=== PATIENT | male | born 1955 | race Caucasian/White ===

== ENCOUNTER 2018-04-19 12:39 | Emergency (ER) | payer OTHER ==
[~2018-04-19 12:39] MED LIST: ENALAPRIL MALEA10 MG PO; KEFLEX500 MG PO; LAC PO; NOR10T PO; PEP20 PO; PRE1 PO; V10 PO; XAN25 PO
[2018-04-19 12:43] VITALS: Ht 152.4 cm
[2018-04-19 13:28] LABS: ALBUMIN 4.1 g/dL (3.4-5.0); ALKALINE PHOSPHATASE 103 U/L (46-116); ALT/SGPT 175 U/L (16-63); AST/SGOT 196 U/L (15-37); BILIRUBIN TOTAL 0.6 mg/dL (0.20-1.00); CALCIUM 8.6 mg/dL (8.5-10.1); CARBON DIOXIDE 25.3 mmol/L (21-32); CREATININE SERUM 0.9 mg/dL (0.7-1.3); GFR1 > 60 mL/min; GLUCOSE SERUM 144 mg/dL (74-106); LIPASE 190 IU/L (73-393); TRIGLYCERIDES 141 mg/dL (<150)
[2018-04-19 13:29] LABS: CHOLESTEROL 231 mg/dL (<200); CHOLESTEROL/HDL RATIO 3.7; HDL CHOLESTEROL 63 mg/dL (40-60)
[2018-04-19 13:40] LABS: FREE T4 0.91 ng/dL (0.76-1.46); FREE THYROXINE INDEX 2.3 ug/dL (1.4-4.5); T4(THYROXINE) 6.8 ug/dL (4.7-13.3)
[2018-04-19 13:44] LABS: BASOPHIL % 0.5 % (0-2); PLATELET COUNT 244 x10^3mcL (130-400)
[2018-04-19 13:45] LABS: CHLORIDE SERUM 99 mmol/L (98-107); POTASSIUM SERUM 3.6 mmol/L (3.5-5.1); SODIUM SERUM 134 mmol/L (136-145)
[2018-04-19 14:08] LABS: T3 TOTAL 0.97 ng/mL
[2018-04-19 14:34] LABS: microscopic required? NO
[2018-04-19 14:40] LABS: UA SPECIFIC GRAVITY <=1.005 (1.005-1.035); urine erythrocyte NEGATIVE (NEGATIVE)
[2018-04-19 15:09] VITALS: BP 147/94
== END 2018-04-19 15:09 | disposition home or self-care (01) ==
LOC: ED 12:39
PROVIDERS: Specialist
DX: R53.1 Weakness (principal); F41.9 Anxiety disorder, unspecified; F51.04 Psychophysiologic insomnia; I10 Essential (primary) hypertension; E78.00 Pure hypercholesterolemia, unspecified; Z88.1 Allergy status to other antibiotic agents; Z86.14 Personal history of Methicillin resistant Staphylococcus aureus infection
CPT/HCPCS: 83880; 84439; Q0092

== ENCOUNTER 2019-04-08 12:05 | Emergency (ER) | payer OTHER ==
[~2019-04-08] VITALS: Ht 170.2 cm; Wt 86.2 kg
[2019-04-08 12:08] VITALS: Ht 170.2 cm; Wt 86.2 kg
[2019-04-08 13:12] LABS: BASOPHIL % 0.6 % (0-2); PLATELET COUNT 167 x10^3mcL (130-400); RED CELL DISTRIBUTION WIDTH 13.3 % (11.5-14.5)
[2019-04-08 13:21] LABS: CALCIUM 8.6 mg/dL (8.5-10.1); CARBON DIOXIDE 24.1 mmol/L (21-32); CHLORIDE SERUM 102 mmol/L (98-107); CREATININE SERUM 0.9 mg/dL (0.7-1.3); GFR1 > 60 mL/min; GLUCOSE SERUM 126 mg/dL (74-106); POTASSIUM SERUM 3.7 mmol/L (3.5-5.1); SODIUM SERUM 138 mmol/L (136-145)
[2019-04-08 13:26] LABS: ALBUMIN 3.9 g/dL (3.4-5.0); ALKALINE PHOSPHATASE 82 U/L (46-116); ALT/SGPT 133 U/L (16-63); AST/SGOT 131 U/L (15-37); BILIRUBIN TOTAL 0.6 mg/dL (0.20-1.00); TOTAL PROTEIN, SERUM 7.4 g/dL (6.4-8.2)
[2019-04-08 13:39] LABS: FREE T4 0.9 ng/dL (0.76-1.46); FREE THYROXINE INDEX 2.1 ug/dL (1.4-4.5); T4(THYROXINE) 6.2 ug/dL (4.7-13.3)
[2019-04-08 14:21] LABS: T3 TOTAL 0.91 ng/mL
[2019-04-08 14:35] VITALS: BP 128/80
== END 2019-04-08 14:35 | disposition home or self-care (01) ==
LOC: ED 12:05
PROVIDERS: Emergency Medicine
DX: R53.1 Weakness (principal); R42 Dizziness and giddiness; E78.00 Pure hypercholesterolemia, unspecified; Z88.1 Allergy status to other antibiotic agents
CPT/HCPCS: 36415; 82962; 84439

== ENCOUNTER 2019-04-11 01:08 | Emergency (ER) | payer OTHER ==
[~2019-04-11] VITALS: Ht 170.2 cm; Wt 86.6 kg
[2019-04-11 01:12] VITALS: Ht 170.2 cm; Wt 86.6 kg
[2019-04-11 05:18] VITALS: BP 133/91
== END 2019-04-11 05:18 | disposition home or self-care (01) ==
LOC: ED 01:08
DX: G47.00 Insomnia, unspecified (principal); R22.0 Localized swelling, mass and lump, head; R51 Headache; E78.00 Pure hypercholesterolemia, unspecified; Z88.1 Allergy status to other antibiotic agents

== ENCOUNTER 2020-04-26 13:12 | Inpatient (IN) | payer OTHER ==
[~2020-04-26] VITALS: Ht 167.6 cm; Wt 83.5 kg
[2020-04-26 13:15] VITALS: Ht 167.6 cm; Wt 83.5 kg
--- NOTE | 2020-04-26 13:15 | NUR ---
EKG IN PROGRESS AT THIS TIME BY MYSELF. PT AAOX4, NO DISTRESS NOTED.
--- NOTE | 2020-04-26 13:44 | NUR ---
PT RESTING IN BED, AAOX4 WITH C/O 6/10 LIGHT PRESSURE-LIKE PAIN TO MID CHEST INTERMITTANTLY X 3 DAYS WITH EXERTION. PT ALSO WITH C/O INCREASING TINGLING TO HANDS/FINGERS X 5 DAYS. PT DENIES ANY SOB/RESP ILLNESS, FEVER, N/V/D/C OR URINARY PROBLEMS AT THIS TIME. PT PLACED ON MONITOR. DR KOO AT BEDSIDE FOR EXAM. NO SIGNS OF DISTRESS.
--- NOTE | 2020-04-26 13:54 | NUR ---
FIRST NITRO GIVEN PER EMAR ORDER. PT REPORTS CHEST PAIN 6/10 AT THIS TIME. WILL CONTINUE TO MONITOR
--- NOTE | 2020-04-26 14:00 | NUR ---
PT DENIES SECOND NITRO PER EMAR ORDER. MADE AWARE. VITAL SIGNS STABLE. WILL CONTINUE TO MONITOR
[2020-04-26 14:06] LABS: BASOPHIL % 0.7 % (0-2); PLATELET COUNT 150 x10^3mcL (130-400); RED CELL DISTRIBUTION WIDTH 12.6 % (11.5-14.5)
--- NOTE | 2020-04-26 14:10 | NUR ---
DR KOO AT THE BEDSIDE TO DISCUSS PLAN OF CARE
[2020-04-26 14:21] LABS: CARBON DIOXIDE 20.9 mmol/L (21-32); CHLORIDE SERUM 92 mmol/L (98-107); CREATININE SERUM 0.8 mg/dL (0.7-1.3); GFR1 > 60 mL/min; GLUCOSE SERUM 129 mg/dL (74-106); POTASSIUM SERUM 3.8 mmol/L (3.5-5.1); SODIUM SERUM 127 mmol/L (136-145)
[2020-04-26 14:33] LABS: ALBUMIN 4.4 g/dL (3.4-5.0); ALKALINE PHOSPHATASE 128 U/L (46-116); ALT/SGPT 146 U/L (16-63); AST/SGOT 184 U/L (15-37); T4(THYROXINE) 8.4 ug/dL (4.7-13.3)
[2020-04-26 14:42] LABS: TOTAL PROTEIN, SERUM 8.5 g/dL (6.4-8.2)
--- NOTE | 2020-04-26 15:02 | NUR ---
T/O WITH DR HUANG TO OBTAIN ADMIT ORDER.
--- NOTE | 2020-04-26 15:55 | NUR ---
PT NOTED LAYING IN ER GURNEY IN POSITION OF COMFORT. PT DENIES ANY PAIN AT THIS TIME. PT AAOX 4, RESP E/U, NO DISTRESS NOTED. PT AWARE OF ADMIT ORDERS. WILL CONTINUE TO MONITOR
[2020-04-26 16:00] VITALS: BP 130/86
--- NOTE | 2020-04-26 16:01 | NUR ---
REPORT CALLED TO SILVIA SETH ON TELE UNIT. SHE WILL ASSUME FURTHER CARE OF THIS PT
[2020-04-26 16:34] VITALS: BP 130/86
--- NOTE | 2020-04-26 16:42 | NUR ---
RECEIVED PT FROM ER, PT ADMIT FOR CHEST PAIN. PT IS A/O X4, VERBAL RESPONSIVE.LUNG SOUND CLEAR BILATERAL, NO COUGH, NO SOB. PT IS ON TELE 14, NSR, DENY ANY CHEST PAIN OR DISCOMFORT, BOWEL SOUND PRESENT ALL 4 QUADRANTS, NO DISTENTION, NO TENDER. PEDAL PULSE PRESENT BOTH FEET, NO EDEMA, IV AT RIGHT FA, NO LEAKING, NO INFILTRATION. ALL ADLS ASSIST, ALL NEED MET, CALL LIGHT IN REACH, WILL CONTINUE TO MONITOR.
--- NOTE | 2020-04-26 17:00 | NUR ---
RECEIVED PT FROM RESOURCE RN. NO SIGNIFICANT CHANGES NOTED. PT RESTING IN BED. DENIES ANY CP/PRESSURE.
--- NOTE | 2020-04-26 18:59 | NUR ---
PT RESTING IN BED WITHOUT APPARENT DISTRESS. NO ACUTE DISTRESS NOTED. IV SL, PATENT AND CDI. SAFETY PRECAUTIONS IN PLACE. WILL ENDORSE CARE TO NEXT SHIFT
--- NOTE | 2020-04-26 19:50 | NUR ---
PATIENT RESTING IN BED, A/O X4, VERBALLY RESPONSIVE, C/O OF 8/10 HEADACHE, WILL REQUEST PHYSICIAN FOR TYLENOL PRN. APPEARS ANXIOUS REGARDING HOSPITAL STAY AND HEADACHE, REASSURED PATIENT REGARDING TREATMENT PLAN INCLUDING NOTIFYING PHYSICIAN FOR TYLENOL FOR HEADACHE, PATIENT VERBALIZED UNDERSTANDING AND APPEARED MORE CALM. BREATHING E/U, ON ROOM AIR, SPO2 97%, DENIES SOB. TELE #14, SINUS RHYTHM, HR 85, DENIES CHEST PAIN. ABD SOFT AND ROUND, C/O OF 3/10 UPPER GASTRIC PAIN, HE STATES IT MIGHT BE DUE TO ANXIETY AND/OR AFTER EATING A BIG DINNER, DENIES NAUSEA, VOMITTING AND PAIN MEDICATION @ THIS TIME. AMBULATORY. NO EDEMA NOTED.IV RAC INTACT, FLUSHED AND SALINE LOCKED. CALL LIGHT WITHIN REACH, BED IN LOWEST POSITION, WILL CONTINUE TO MONITOR.
[2020-04-26 20:15] VITALS: BP 153/92
--- NOTE | 2020-04-26 20:20 | NUR ---
PATIENT ALSO REQUESTED FOR SLEEPING AID, PATIENT HAS HX OF ANXIETY AND WAS TAKING XANAX 0.25 MG PO PRN FOR ANXIETY BEFORE HOSPITALIZATION BUT CANNOT RECALL WHEN WAS THE LAST TIME HE HAD TAKEN MEDICATION. FIDEL REQUEST PHYSICIAN FOR SLEEPING AID.
--- NOTE | 2020-04-26 20:45 | NUR ---
PAGED PHYSICIAN, DR. JOHNSON MADE AWARE OF PATIENT'S REQUEST FOR TYLENOL, HX OF ANXIETY AND REQUEST FOR SLEEPING. HE ORDERED TYLNEOL 650 MG Q4H PRN AND AMBIEN 10 MG PO @ [facility]. DR. JOHNSON ALSO MADE AWARE THAT PATIENT HAS NO AM LABS SCHEDULED FOR TOMORROW, HAS NO CODE STATUS ORDER IN PLACE AND NO PAIN PRN MEDICATION. DR. JOHNSON PLACED ORDERS FOR CBC AND CMP AMB LAB ORDERS, TRAMADOL 50 MG PO Q4H FOR PAIN PRN, AND FULL CODE STATUS.
--- NOTE | 2020-04-26 21:28 | NUR ---
GAVE TYLENOL PRN FOR 8/10 HEADACHE AND AMBIEN FOR SLEEP. INFORMED PATIENT THAT AMBIEN MAY CAUSE DROWSINESS AND TO USE CALL LIGHT FOR ASSISTANCE WHEN AMBULATING OUT OF BED.
--- NOTE | 2020-04-27 00:57 | NUR ---
PATIENT RESTING IN BED WITH EYES CLOSED. EVEN CHEST RISE AND FALL, ON ROOM AIR. TELE #14, HR 84, SINUS RHYTHM. SHOWS NO SIGN OF PAIN OR DISTRESS. CALL LIGHT WITHIN REACH, BED IN LOWEST POSITION. WILL CONTINUE TO MONITOR.
[2020-04-27 04:45] VITALS: BP 124/85
--- NOTE | 2020-04-27 06:10 | NUR ---
PATIENT C/O OF EPIGASTRIC DISCOMFORT, REQUESTED FOR PEPTO BISMOL. PAGED DR. JOHNSON, WILL WAIT TO HEAR BACK.
--- NOTE | 2020-04-27 06:40 | NUR ---
PATIENT RESTING IN BED WITH EYES CLOSED. EVEN CHEST RISE AND FALL, ON ROOM AIR, SO2 96%. TELE #4, SINUS RHYTHM, HR 82. SHOWS NO SIGN OF PAIN OR DISTRESS. DID NOT HEAR BACK FROM DR. JOHNSON REGARDING PEPTO BISMOL REQUEST FROM PATIENT, PATIENT ALSO HAS NO DVT PROPHYLAXIS ORDER IN PLACE, WILL ENDORSE TO DAY NURSE. CALL LIGHT WITHIN REACH, NO SIGNFICANT CHANGES DURING SHIFT. WILL ENDORSE CARE TO DAY NURSE.
--- NOTE | 2020-04-27 07:15 | NUR ---
RECEIVED PT IN BED AWAKE, ALERT, VERBALLY RESPONSIVE. ON RA, NO ACUTE RESPIRATORY DISTRESS. VERBALIZED GASTRIC/ACIDIC DISCOMFORT TO UPPER ABDOMINAL AREA, PAGED AND AWAITING FOR CALL BACK. PT STATES TOLERABLE DISCOMFORT AT THIS TIME. ON TELE 14, DENIES CHEST PAIN/PRESSURE. BED IN LOWEST POSITION. SIDE RAILS UPX2. CALL LIGHT WITHIN REACH. WILL CONTINUE TO MONITOR.
[2020-04-27 07:27] LABS: ALKALINE PHOSPHATASE 109 U/L (46-116); ALT/SGPT 122 U/L (16-63); AST/SGOT 133 U/L (15-37); BILIRUBIN TOTAL 2.18 mg/dL (0.20-1.00); CALCIUM 8.9 mg/dL (8.5-10.1); CARBON DIOXIDE 22.4 mmol/L (21-32); CHLORIDE SERUM 95 mmol/L (98-107); CREATININE SERUM 0.7 mg/dL (0.7-1.3); GFR1 > 60 mL/min; GLUCOSE SERUM 123 mg/dL (74-106); POTASSIUM SERUM 3.6 mmol/L (3.5-5.1); SODIUM SERUM 129 mmol/L (136-145)
[2020-04-27 08:01] VITALS: BP 139/83
[2020-04-27 08:02] LABS: BASOPHIL % 0.6 % (0-2); PLATELET COUNT 131 x10^3mcL (130-400); RED CELL DISTRIBUTION WIDTH 12.8 % (11.5-14.5)
--- NOTE | 2020-04-27 09:45 | NUR ---
PATIENT WAS SEEN AND EVALUATED BY . DISCUSSED PLAN OF CARE WITH PATIENT REGARDING CARDIO AND GI CONSULT. ALL CONCERNS VERBALIZED BY PATIENT ADDRESSED BY .
[2020-04-27 12:21] VITALS: BP 149/88
--- NOTE | 2020-04-27 15:00 | NUR ---
ABDOMINAL U/S DONE, AWAITING FOR RESULTS.
[2020-04-27 16:49] VITALS: BP 116/60
--- NOTE | 2020-04-27 17:05 | NUR ---
CALLED AND HE STATED THAT HE SPOKE W/ DR.AL BRAXTON AND STATED THAT THE PATIENT CAN GO HOME.
--- NOTE | 2020-04-27 17:15 | NUR ---
REPORTED COMPLETE ABDOMINAL US RESULT TO WITH NEW ORDER FOR AM LABS LIVER FUNCTION TEST, LIPASE, AND AMYLASE ON 04/28/20. ORDERS READ BACK AND VERIFIED, NOTED AND CARRIED OUT. PER , HE WILL SEE PATIENT TOMORROW.
--- NOTE | 2020-04-27 18:00 | NUR ---
PT MADE AWARE OF FURTHER LAB TESTING FOR TOMORROW PER , PT VERBALIZED CONCERN AND REQUEST OF MEDICATION TO HELP HIM SLEEP. CURRENTLY HAS ORDER FOR AMBIEN BUT PT STATES IT'S INEFFECTIVE AND REQUESTING FOR XANAX. PAGED FOR , PER RJ FROM CALL SERVICE IS ONCALL, AWAITING FOR CALL BACK.
--- NOTE | 2020-04-27 18:53 | NUR ---
, [facility] CALLED BACK. MADE AWARE OF PATIENT'S REQUEST WITH NEW ORDER FOR XANAX 0.25MG PO X1 DOSE AND D/C AMBIEN ORDER. ORDERS READ BACK AND VERIFIED, NOTED AND CARRIED OUT.
--- NOTE | 2020-04-27 19:20 | NUR ---
DR. SHERMAN CALLED STATED TO PLACE ORDER FOR SHAN SCAN STRESS TEST @ 1300 TOMORROW, FULL LIQUIDS FOR TOMORROW'S BREAKFAST AND PATIENT IS TO BE NPO AFTER BREAKFAST.
--- NOTE | 2020-04-27 19:20 | NUR ---
PT IN BED AWAKE, ALERT, VERBALLY RESPONSIVE. ON RA, NO ACUTE RESPIRATORY DISTRESS. STILL C/O GASTRIC/ACIDIC DISCOMFORT TO UPPER ABDOMINAL AREA, PT STATES TOLERABLE DISCOMFORT ON AND OFF. ON TELE 14, DENIES CHEST PAIN/PRESSURE. BED IN LOWEST POSITION. SIDE RAILS UPX2. CALL LIGHT WITHIN REACH. WILL ENDORES ADDITIONAL CARE TO INCOMING RN.
--- NOTE | 2020-04-27 19:35 | NUR ---
PATIENT RESTING IN BED, A/O X4, VERBALLY RESPONSIVE, C/O OF 7/10 HEADACHE, APPEARS ANXIOUS REGARDING HOSPITAL STAY, HAS ONE-TIME ORDER OF XANAX 0.25 MG SCHEDULED @ 1999, WILL GIVE XANAX AND TYLENOL. BREATHING E/U ON ROOM AIR, SPO2 96%, DENIES SOB. TELE #14, SINUS RHYTHM, HR 75, DENIES CHEST PAIN. ABD SOFT AND ROUND. NO EDEMA NOTED. AMBULATORY. IV RFA INTACT, FLUSHED AND SALINE LOCKED. CALL LIGHT WITHIN REACH, BED IN LOWEST POSITION. WILL CONTINUE TO MONITOR. DR. HARRIS ALSO PRESENT @ BEDSIDE AND INFORMED PATIENT OF TREATMENT PLAN INCLUDING CARDIAC ECHO. DR. HARRIS MADE AWARE OF DR. SHERMAN'S ORDER FOR SHAN SCAN/STRESS TEST.
--- NOTE | 2020-04-27 20:10 | NUR ---
DR. HARRIS HAS PLACED ORDER FOR LEXISCAN STRESS TEST, SCHEDULED FOR TOMORROW 1300.
[2020-04-27 21:06] VITALS: BP 154/88
--- NOTE | 2020-04-27 21:31 | NUR ---
PATIENT STATED THAT HE HAS STILL HAS ANXIETY AFTER TAKING 0.25 MG XANAX ONE TIME. PATIENT STATED THAT HE USUALLY TAKES 1 MG XANAX PRN AND REQUESTED FOR MORE XANAX. ACCORDING TO MEDICATION REC, PATIENT TAKES 0.25 MG XANAX PRN. PAGED PHYSICIAN TO REQUEST FOR ADDITIONAL ANXIETY MEDICATION.
--- NOTE | 2020-04-27 21:50 | NUR ---
DR. ANTHONY CALLED BACK, MADE AWARE OF XANAX MEDICATION REC AND PATIENT'S STATEMENT THAT HE USUALLY TAKES 1 MG XANAX PRN. HE ORDERED A ONE-TIME ORDER OF 0.75 MG XANAX.
--- NOTE | 2020-04-28 01:35 | NUR ---
PATIENT IS TO BE NPO IN PREPARATION FOR STRESS TEST PER DR. HARRIS'S CONSULTATION NOTES.
--- NOTE | 2020-04-28 02:00 | NUR ---
PATIENT RESTING IN BED, PROVIDED PATIENT EDUCATION REGARDING PURPOSE OF ORDERED STRESS TEST WHICH IS SCHEDULED @ 1300 LATER TODAY AND CARDIAC ECHO, PATIENT VERBALIZED UNDERSTANDING. ALSO INFORMED PATIENT THAT HE IS BE NPO STARTING NOW, PATIENT VERBALIZED UNDERSTANDING. CALL LIGHT WITHIN REACH, WILL CONTINUE TO MONITOR.
[2020-04-28 05:34] VITALS: BP 130/79
--- NOTE | 2020-04-28 06:50 | NUR ---
PATIENT RESTING IN BED WITH EYES CLOSED. EVEN CHEST RISE AND FALL, ON ROOM AIR. TELE #14, HR 68, SINUS RHYTHM. SHOWS NO SIGN OF PAIN OR DISTRESS. HAS BEEN NPO SINCE MIDNIGHT IN PREPARATION SHAN SCAN STRESS TEST SCHEDULED @ 1300 AND ALSO HAS CARDIAC ECHO ORDER. IV R WRIST INTACT. CALL LIGHT WITHIN REACH, NO SIGNFICIANT CHANGES DURING SHIFT. WILL ENDORSE CARE TO DAY NURSE.
--- NOTE | 2020-04-28 07:30 | NUR ---
RECEIVED PT FROM PM NURSE. PT IS AWAKE AND RESTING AT THIS TIME. NO FACIAL DISTRESS OR SOB NOTED. PT IS A/OX4. ABLE TO MAKE NEEDS KNOWN. DENIES GARCIA/DIZZINESS. LUNG SOUNDS CTA. BREATHING E/U ON RA. TELE #14. NSR. DENIES CP/PRESSURE. PALPABLE PULSES. NO EDEMA NOTED. HYPOACTIVE BSX4. ABD SOFT AND ROUND. DENIES N/V/D. VOIDS FREELY. AMBULATORY BASELINE. SKIN INTACT. NO C/O PAIN BUT DID COMPLAIN ABUT BEING TIRED D/T NOT BEING ABLE TO SLEEP MUCH AT ALL THE LAST TWO DAYS. IV TO RAC. SL. INTACT. BED AT LOWEST POSITION. CALL BUTTON WITHIN REACH. WILL CONTINUE TO MONITOR.
[2020-04-28 08:19] VITALS: BP 119/76
[2020-04-28 08:34] LABS: ALBUMIN 4.1 g/dL (3.4-5.0); BILIRUBIN DIRECT 0.76 mg/dL (0.0-0.2); BILIRUBIN TOTAL 1.96 mg/dL (0.20-1.00); TOTAL PROTEIN, SERUM 8.2 g/dL (6.4-8.2)
[2020-04-28 08:39] LABS: CHOLESTEROL/HDL RATIO 3.4
[2020-04-28 12:29] VITALS: BP 152/90
[2020-04-28 16:22] VITALS: BP 149/90
[2020-04-28 17:12] VITALS: BP 100/56
--- NOTE | 2020-04-28 19:07 | NUR ---
PAGED DR FERNANDEZ ABOUT PATIENT WANTING TO STAY ANOTHER NIGHT DESPITE HAVING A DISCHARGE ORDER. NO ACUTE DISTRESS DURING SHIFT. WILL ENDORSE CARE TO PM SHIFT FOR CONTINUITY OF CARE.
--- NOTE | 2020-04-28 20:18 | NUR ---
PT WITH DISCHARGE ORDERS FROM DR KOWALSKI, PT CALLED AND STATED THAT HE IS NOT FEELING WELL AND VERY ANXIOUS ABOUT GOING HOME, [facility] AND WILL GO HOME IN THE MORNING, SPOKE WITH DR FERNANDEZ AND DR FERNANDEZ REFUSED TO HOLD DC ORDERS, ESCALATED THE SITUATION TO HOUSE SUP-TETO, PER TETO THAT CAN'T FORCE PT TO BE DC, WILL JUST MONITOR PT OVERNIGHT, TELEPHONE ORDER RECEIVED FROM DR FERNANDEZ FOR ATIVAN 0.5MG PO X 1.
--- NOTE | 2020-04-28 21:54 | NUR ---
PT IS FOR DISCHARGE TONIGHT BUT HE SAID, HE'S NOT FEELING GOOD AT THIS TIME, COMPLAINING OF SHAKING HANDS AND FEET, WEAK AND NAUSEATED. CALLED DR FERNANDEZ AND INFORMED HIM THAT PT IS NOT COMFORTABLE GOING HOME. DR FERNANDEZ SAID THAT EVERYTHING IS NORMAL FOR HIM PER LAB AND TEST RESULT AND THAT HE IS FIT TO GO HOME. INFORMED PT AND PT NOTED MORE ANXIOUS. HAND ETCHER HELPER WAS NOTIFIED WHICH SHE CALLED BACK DR FERNANDEZ, ATIVAN 0.5MG PO WAS ORDERED FOR PTS ANXIETY AND WAS GIVEN. ALL NEEDS ATTENDED, WILL CONTINUE TO MONITOR.
[2020-04-28 22:26] VITALS: BP 141/83
--- NOTE | 2020-04-29 05:27 | NUR ---
PT SLEPT FAIRLY DURING THE NIGHT, VSS, NO ACUTE DISTRESS NOTED, WILL CONTINUE TO MONITOR.
[2020-04-29 06:04] VITALS: BP 119/73
--- NOTE | 2020-04-29 06:45 | NUR ---
PT IS AAO X 4 AND STATED THAT HE IS READY TO GO HOME, IV DC'D AND CATH INTACT, DENIES ANY CHEST PAIN OR DISCOMFORT, ALL BELONINGS SENT WITH PT. PT AMBULATED WITH STEADY GAIT.
== END 2020-04-29 06:45 | disposition home or self-care (01) | DRG 203 ==
LOC: ED 13:12 → DU 14:58
PROVIDERS: Emergency Medicine; Hospitalist; Internal Medicine; Internal Medicine Cardiovascular Disease; ADMIT Internal Medicine; ATTEND Internal Medicine
DX: R07.9 Chest pain, unspecified (principal); E87.1 Hypo-osmolality and hyponatremia; E87.8 Other disorders of electrolyte and fluid balance, not elsewhere classified; E78.00 Pure hypercholesterolemia, unspecified; Z20.828 Contact with and (suspected) exposure to other viral communicable diseases; K21.9 Gastro-esophageal reflux disease without esophagitis; E78.5 Hyperlipidemia, unspecified; F41.9 Anxiety disorder, unspecified; F32.9 Major depressive disorder, single episode, unspecified; Z82.49 Family history of ischemic heart disease and other diseases of the circulatory system; Z95.818 Presence of other cardiac implants and grafts; Z88.1 Allergy status to other antibiotic agents; Z79.82 Long term (current) use of aspirin
CPT/HCPCS: 83880; A9500; G0378; J2060; J2785; Q0092